=== PATIENT | female | born 1965 | race Caucasian/White ===

== ENCOUNTER 2016-09-21 08:59 | Inpatient (IN) | payer OTHER ==
[2016-09-21 10:26] VITALS: BMI 27.4
--- NOTE | 2016-09-21 14:15 | HP ---
CIWA Score - CIWA Score Nausea/Vomitin Muscle Tremors: 4-Moderate,w/Arms Extend Anxiety: 4-Mod. Anxious/Guarded Agitation: 3 Paroxysmal Sweats: 3 Orientation: 0-Oriented Tacttile Disturbances: 2-Mild Itch/Numbness/Burn Auditory Disturbances: 0-None Visual Disturbances: 3-Moderate Sensitivity Headache: 3-Moderate CIWA-Ar Total Score: 27 Admission ROS S - HPI Chief Complaint: "I need to save my life and get back with my daughter who has shut me off." Patient is here to Detox from Alcohol. Allergies/Adverse Reactions: Allergies Allergy/AdvReac Type Severity Reaction Status Date / Time latex [Latex] Allergy Severe Rash Verified 09/21/16 11:34 Influenza Virus Vaccines Allergy Verified 09/21/16 11:34 pneumococcal vaccine Allergy Verified 09/21/16 11:34 tuberculin, purified protein Allergy Verified 09/21/16 15:47 deriva latex Allergy Mild Uncoded 09/21/16 11:34 ppd Allergy Uncoded 09/21/16 11:34 History of Present Illness: Patient is a 51 YO female here to Detox from Alcohol. Pt. has had several previous Detox admissions at [facility] in the past. Exam Limitations: Intoxication, Altered Mental Status - Ebola screening Have you traveled outside of the country in the last 21 days: No Have you had contact with anyone from an Ebola affected area: No Have you been sick,other than usual withdrawal symptoms: No Do you have a fever: No - Review of Systems Constitutional: Chills, Diaphoresis, Fever, Malaise, Night Sweats, Changes in sleep EENT: reports: Blurred Vision, Nose Congestion, Sinus Pressure Respiratory: reports: SOB with Exertion, Productive cough Cardiac: reports: Palpitations, Syncope (Blackout - Last episode: approx. 3 days ago.) GI: reports: Diarrhea, Nausea, Vomiting, Indigestion, Abdominal cramping : reports: Burning (Was being treated for a UTI, stopped taking medication before completing (approx. 1 month ago).), Dysuria, Discharge (Yellow Color.) Musculoskeletal: reports: Back Pain, Joint Pain, Muscle Pain, Neck Pain, Joint Stiffness Integumentary: reports: No Symptoms Reported Neuro: reports: Headache, Numbness (Fingertips of Bilateral Hands and Toes of Bilateral Feet.), Seizure (Last Episode (ETOH-related): approx. 3 years ago.), Tingling (Fingertips of Bilateral Hands and Toes of Bilateral Feet.), Tremors Endocrine: reports: No Symptoms Reported Hematology: reports: Easy Bruising Psychiatric: reports: Judgement Intact, Orientated x3, Agitated, Anxious, Depressed Other Systems: Reviewed and Negative Patient History - Patient Medical History Hx Anemia: No Hx Asthma: Yes (No recent meds.) Hx Chronic Obstructive Pulmonary Disease (COPD): No Hx Cancer: No Hx Cardiac Disorders: No Hx Congestive Heart Failure: No Hx Hypertension: Yes (Takes meds.) Hx Hypercholesterolemia: Yes (Takes meds.) Hx Pacemaker: No HX Cerebrovascular Accident: No Hx Seizures: Yes (alcohol related once in 2013) Hx Dementia: No Hx Diabetes: No Hx Gastrointestinal Disorders: Yes (acid reflux/peptic ulcer (possible Gastritis , patient unsure?)) Hx Liver Disease: Yes (fatty liver) Hx Genitourinary Disorders: No Hx Sexually Transmitted Disorders: No Hx Renal Disease (ESRD): No Hx Thyroid Disease: No Hx Human Immunodeficiency Virus (HIV): No Hx Hepatitis C: No (Does not Recall being tested.) Hx Depression: Yes (On meds.) Hx Suicide Attempt: No (PATIENT DENEIS CURRENT SI / HI.) Hx Bipolar Disorder: Yes (On meds.) Hx Schizophrenia: No - Patient Surgical History Past Surgical History: Yes Hx Neurologic Surgery: No Hx Cataract Extraction: No Hx Cardiac Surgery: No Hx Lung Surgery: Yes (collapsed R lung S/P CHEST TUBE, approx. 10 years ago.) Hx Breast Surgery: No Hx Breast Biopsy: No Hx Abdominal Surgery: No Hx Appendectomy: No Hx Cholecystectomy: No Hx Genitourinary Surgery: No Hx Section: No Hx Orthopedic Surgery: No Hx Hysterectomy: No Other Surgical History: TONSILLECTOMY DURING CHILDHOOD; 1 (1979). Anesthesia Reaction: No - PPD History Previous Implant?: Yes (Patient has had Negative reaction to PPD solution in past. CXR: 10/2015.) Documented Results: Negative w/o proof Implanted On Prior [facility] Admission?: No PPD to be Administered?: No - Reproductive History Patient is a Female of Child Bearing Age (11 -55 yrs old): Yes Last Menstrual Period: 05/07/09 Patient : No - Smoking Cessation Smoking history: Current every day smoker Have you smoked in the past 12 months: Yes Aproximately how many cigarettes per day: 20 Cigars Per Day: 0 Hx Chewing Tobacco Use: No Initiated information on smoking cessation: Yes 'Breaking Loose' booklet given: 09/21/16 (GIVEN ON UNIT.) - Substance & Tx. History Hx Alcohol Use: Yes Hx Substance Use: Yes Substance Use Type: Alcohol Hx Substance Use Treatment: Yes (Previous Detox admissions at [facility].) - Substances Abused Alcohol-vodka Route: Oral Frequency: Daily Amount used: 2 pts. Age of first use: 15 Date of Last Use: 09/21/16 Family Disease History - Family Disease History Family Disease History: Diabetes: Grandparent (breast cancer), CA: Grandparent, Mother (; breast cancer; alcoholic), Other: Mother, Brother (dec; AIDS) , Sister (drug use) Admission Physical Exam [facility] - Vital Signs Vital Signs: Vital Signs - 24 hr 09/21/16 10:23 Temperature 97 F L Pulse Rate 79 Respiratory 20 Rate Blood Pressure 111/74 - Physical General Appearance: Yes: Nourished, Appropriately Dressed, Moderate Distress, Tremorous, Irritable, Anxious HEENTM: Yes: Hearing grossly Normal, Normocephalic, Normal Voice, JERE, Pharynx Normal Respiratory: Yes: Chest Non-Tender, Lungs Clear, No Respiratory Distress Neck: Yes: No masses,lesions,Nodules, Supple, Trachea in good position Breast: Yes: Breast Exam Deferred Cardiology: Yes: Regular Rhythm, Regular Rate, S1, S2 Abdominal: Yes: Normal Bowel Sounds, Soft, Protuberent Genitourinary: Yes: Burning, Dysuria Back: Yes: Decreased Range of Motion Musculoskeletal: Yes: Gait Steady, Back pain, Joint Stiffness Extremities: Yes: Tremors Neurological: Yes: Fully Oriented, Alert, Normal Response Integumentary: Yes: Normal Color, Warm, Diaphoresis Lymphatic: Yes: Within Normal Limits - Diagnostic (1) Alcohol dependence with uncomplicated withdrawal Current Visit: Yes Status: Acute (2) GERD (gastroesophageal reflux disease) Current Visit: Yes Status: Chronic Qualifiers: Esophagitis presence: without esophagitis Qualified Code(s): K21.9 - Gastro-esophageal reflux disease without esophagitis (3) HTN (hypertension) Current Visit: Yes Status: Chronic Qualifiers: Hypertension type: essential hypertension Qualified Code(s): I10 - Essential (primary) hypertension (4) Hypercholesteremia Current Visit: Yes Status: Chronic (5) Nicotine dependence Current Visit: Yes Status: Chronic Qualifiers: Nicotine product type: cigarettes Substance use status: uncomplicated Qualified Code(s): F17.210 - Nicotine dependence, cigarettes, uncomplicated (6) History of bipolar disorder Current Visit: Yes Status: Chronic (7) History of asthma Current Visit: Yes Status: Chronic Cleared for Admission [facility] - Detox or Rehab [facility] Level of Care: Medically Managed Detox Regimen/Protocol: Librium [facility] Breath Alcohol Content Breath Alcohol Content: 0.313 Urine Pregancy Test - Result Urine Test Results: Negative- NO Line Present Urine Drug Screen - Results Drug Screen Negative: Yes
[2016-09-21 14:46] LABS: HIV 1 & 2 AB NEGATIVE; HIV 1 AGp24 NEGATIVE
[2016-09-21] MEDS ORDERED: MAGNESIUM CITRATE 300 ML BOTTLE PO PRN (15:32)
[2016-09-21] MEDS ORDERED: P-EPHED 60MG/TRIPROLIDI 2.5MG TABLET PO PRN (15:32)
[2016-09-21] MEDS ORDERED: ACETAMINOPHEN 325 MG TABLET (FP) PO PRN (15:32)
[2016-09-21] MEDS ORDERED: guaiFENesin/D-METHORPHAN HB 10 ML UNIT-DOSE CUPS PO PRN (15:32)
[2016-09-21] MEDS ORDERED: diphenhydrAMINE HCL 50 MG CAPSULE PO PRN (15:32)
[2016-09-21] MEDS ORDERED: MAG HYDROX/AL HYDROX/SIMETH 30 ML UNIT-DOSE CUP PO PRN (15:32)
[2016-09-21] MEDS ORDERED: NICOTINE POLACRILEX 2 MG GUM BC PRN (15:32)
[2016-09-21] MEDS ORDERED: chlordiazePOXIDE HCL 25 MG CAPSULE PO PRN (15:32)
[2016-09-21] MEDS ORDERED: MAGNESIUM HYDROX 2400MG/30ML ORAL SUSPENSION 30 ML CUP PO PRN (15:32)
[2016-09-21] MEDS ORDERED: MENTHOL/PHENOL 1 EACH UD MM PRN (15:32)
[2016-09-21] MEDS ORDERED: ALBUTEROL SO4 6.7 GM HFA INHALER IH PRN (15:38)
[2016-09-21] MEDS ORDERED: chlordiazePOXIDE HCL 25 MG CAPSULE PO ONE (15:44)
[2016-09-21] MEDS ORDERED: ARTIFICIAL TEARS (POLYVINYL ALCOHOL 1.4%) OPTH DROPS OU PRN (15:53)
[2016-09-21] MEDS: chlordiazePOXIDE HCL 25 MG CAPSULE PO SCH ×2 (17:53→22:31)
[2016-09-21] MEDS: NICOTINE 21 MG/24 HOURS TOPICAL PATCH TD SCH (17:55)
--- NOTE | 2016-09-21 17:57 | CONSULT ---
[facility] Psychiatric Consult - Data Date of interview: 09/21/16 Admission source: [facility] Identifying data: Readmission to [facility] for this 50 y/o female admitted to [address] [place] [address] for detox treatment for alcohol dependence.Patient is ,a mother of one,domiciled,unemployed and supported on SSI benefts. Substance Abuse History: - Smoking Cessation. Smoking history: Current every day smoker. Have you smoked in the past 12 months: Yes. Aproximately how many cigarettes per day: 20. Cigars Per Day: 0. Hx Chewing Tobacco Use: No. Initiated information on smoking cessation: Yes. 'Breaking Loose' booklet given : 09/21/16 (GIVEN ON UNIT.). - Substance & Tx. History. Hx Alcohol Use: Yes. Hx Substance Use: Yes. Substance Use Type: Alcohol. Hx Substance Use Treatment : Yes (Previous Detox admissions at [facility] - Substances Abused. Alcohol- vodka. Route: Oral. Frequency: Daily. Amount used: 2 pts. Age of first use: 15. Date of Last Use: 09/21/16. Confirmed by patient. Medical History: Remarkable for hypercholesterolemia,HTN and substance-induced seizures in 2014. Psychiatric History: Patient appears intoxicated (alcohol).Disorganized and unreliable historian.She is already known to this freelance writer.History is extracted from previously established records : diagnosed with Bipolar Disorder.History of multiple psychiatric hospitalizations.Psychiatric OPD services are supervised ,at [facility],by psychiatrist Dr Cardona.Ms Lala states that she is no longer on wellbutrin,risperdal or seroquel.Chronically non-adherent to aftercare.Patient denies history of suicide attempts. Physical/Sexual Abuse/Trauma History: No reported history of abuse. Additional Comment: Drug Screen is negative. Mental Status Exam - Mental Status Exam Alert and Oriented to: Time, Place, Person Cognitive Function: Good Patient Appearance: Well Groomed Mood: Euphoric Affect: Labile Patient Behavior: Fatigued, Talkative Speech Pattern: Inappropriate, Excessive Voice Loudness: Normal Thought Process: Tangential, Disorganized Thought Disorder: Bizarre Hallucinations: Denies Suicidal Ideation: Denies Homicidal Ideation: Denies Insight/Judgement: Poor Sleep: Fair Appetite: Good Muscle strength/Tone: Normal Gait/Station: Normal Psychiatric Findings - Problem List ([place] 1, 2,3) (1) Alcohol dependence with uncomplicated withdrawal Current Visit: Yes Status: Acute (2) Nicotine dependence Current Visit: Yes Status: Acute Qualifiers: Nicotine product type: cigarettes Substance use status: uncomplicated Qualified Code(s): F17.210 - Nicotine dependence, cigarettes, uncomplicated (3) Alcohol intoxication Current Visit: Yes Status: Suspected (4) History of bipolar disorder Current Visit: Yes Status: Chronic (5) GERD (gastroesophageal reflux disease) Current Visit: Yes Status: Chronic Qualifiers: Esophagitis presence: without esophagitis Qualified Code(s): K21.9 - Gastro-esophageal reflux disease without esophagitis (6) HTN (hypertension) Current Visit: Yes Status: Chronic Qualifiers: Hypertension type: essential hypertension Qualified Code(s): I10 - Essential (primary) hypertension (7) History of asthma Current Visit: Yes Status: Chronic (8) History of positive PPD Current Visit: Yes Status: Chronic (9) Hypercholesteremia Current Visit: Yes Status: Chronic (10) Positive PPD Current Visit: No Status: Chronic - Initial Treatment Plan Initial Treatment Plan: Psychoeducation deferred at this time (patient is too disorganized).Detoxification is initiated.Observation without psychotropic medications (with the exception of detox agents).Discussed with nursing staff.
[2016-09-21] MEDS: THIAMINE HCL 100 MG TABLET (FP) PO SCH (22:30)
[2016-09-21] MEDS: RANITIDINE HCL 150 MG TABLET (FP) PO SCH (22:31)
[2016-09-21] MEDS: GABAPENTIN 100 MG CAPSULE (FP) PO SCH (22:31)
[2016-09-21] MEDS: ATORVASTATIN CA 10 MG TABLET (FP) PO SCH (22:32)
[2016-09-21] MEDS: TOLNAFTATE 1% CREAM 15 GM TUBE TP SCH (23:02)
[2016-09-21 23:21] LABS: URINE APPEARANCE CLEAR; URINE BILIRUBIN NEGATIVE (NEGATIVE); URINE BLOOD NEGATIVE (NEGATIVE); URINE COLOR LTYELLOW; URINE GLUCOSE (UA) NEGATIVE (NEGATIVE); URINE KETONE NEGATIVE (NEGATIVE); URINE LEUK ESTERASE NEGATIVE (NEGATIVE); URINE NITRITE NEGATIVE (NEGATIVE); URINE PROTEIN NEGATIVE (NEGATIVE); URINE UROBILINOGEN NEGATIVE E.U./dl (0.2-1.0)
[2016-09-22] MEDS: chlordiazePOXIDE HCL 25 MG CAPSULE PO SCH ×4 (05:29→22:43)
[2016-09-22] MEDS: GABAPENTIN 100 MG CAPSULE (FP) PO SCH ×3 (05:30→22:43)
[2016-09-22] MEDS ORDERED: TRIMETHOBENZAMIDE HCL 200MG/2ML INJ IM PRN (09:38)
[2016-09-22] MEDS ORDERED: LORATADINE 10 MG TABLET PO PRN (10:00)
[2016-09-22] MEDS ORDERED: METOPROLOL TARTRATE 25 MG TABLET (FP) PO SCH (10:00)
--- NOTE | 2016-09-22 10:08 | PN ---
S CIWA - CIWA Score Nausea/Vomitin Muscle Tremors: 3 Anxiety: 3 Agitation: 2 Paroxysmal Sweats: 1-Minimal Palms Moist Orientation: 0-Oriented Tacttile Disturbances: 1-Very Mild Itch/Numbness Auditory Disturbances: 1-Very Mild Visual Disturbances: 1-Very Mild Sensitivity Headache: 2-Mild CIWA-Ar Total Score: 17 BHS Progress Note (SOAP) Subjective: ALERT,IRRITABLE,ANXIOUS,INTERRUPTED SLEEP,TREMOR,VOMITING Objective: 09/22/16 10:07 Vital Signs Temperature 98.8 F 09/22/16 06:00 Pulse Rate 74 09/22/16 06:00 Respiratory Rate 18 09/22/16 06:00 Blood Pressure 151/84 09/22/16 06:00 O2 Sat by Pulse Oximetry (%) EKG NSR,PROLONG QT NO CHEST PAIN,NO SOB,NO DIZZINESS Laboratory Last Values Urine Color Ltyellow 09/21/16 23:00 Urine Appearance Clear 09/21/16 23:00 Urine pH 7.0 (5.0-8.0) 09/21/16 23:00 Ur Specific [place] <= 1.005 (1.005-1.025) 09/21/16 23:00 Urine Protein Negative (NEGATIVE) 09/21/16 23:00 Urine Glucose (UA) Negative (NEGATIVE) 09/21/16 23:00 Urine Ketones Negative (NEGATIVE) 09/21/16 23:00 Urine Blood Negative (NEGATIVE) 09/21/16 23:00 Urine Nitrite Negative (NEGATIVE) 09/21/16 23:00 Urine Bilirubin Negative (NEGATIVE) 09/21/16 23:00 Urine Urobilinogen Negative E.U./dl (0.2-1.0) 09/21/16 23:00 Ur Leukocyte Esterase Negative (NEGATIVE) 09/21/16 23:00 HIV 1&2 Antibody Screen Negative 09/21/16 12:30 HIV P24 Antigen Negative 09/21/16 12:30 LABS PENDING Assessment: 09/22/16 10:08 WITHDRAWAL SYMPTOM Plan: CONTINUE DETOX
[2016-09-22] MEDS: METOPROLOL SUCCINATE 25 MG TAB.SR.24H (FP) PO SCH (10:22)
[2016-09-22] MEDS: PRENATAL VITAMINS W/ FOLIC ACID TABLET (FP) PO SCH (10:22)
[2016-09-22] MEDS: RANITIDINE HCL 150 MG TABLET (FP) PO SCH ×2 (10:22→22:42)
[2016-09-22 10:23] LABS: MCH 31.9 pg (25.7-33.7); MCHC 33.3 g/dl (32.0-36.0); MEAN CELL VOLUME 95.8 fl (80-96); MEAN PLT VOLUME 9.4 fl (7.5-11.1); PLATELET COUNT 201 K/MM3 (134-434); RDW 14.2 % (11.6-15.6); WHITE BLOOD COUNT 4.4 K/mm3 (4.0-10.0)
[2016-09-22] MEDS: TOLNAFTATE 1% CREAM 15 GM TUBE TP SCH ×2 (10:23→22:46)
[2016-09-22] MEDS: NICOTINE 21 MG/24 HOURS TOPICAL PATCH TD SCH (10:23)
--- NOTE | 2016-09-22 10:41 | EKG ---
Test Reason : Blood Pressure : / mmHG Vent. Rate : 074 BPM Atrial Rate : 074 BPM P-R Int : 146 ms QRS Dur : 080 ms QT Int : 438 ms P-R-T Axes : 045 065 047 degrees QTc Int : 486 ms NORMAL SINUS RHYTHM PROLONGED QT ABNORMAL ECG NO PREVIOUS ECGS AVAILABLE Confirmed by MAI NAVARRO, COLT ([id number]) on 09/22/2016 10:41:11 AM Referred By: Confirmed By:COLT ONEILL MD
[2016-09-22 10:43] LABS: ALBUMIN 3.7 g/dl (3.4-5.0); ALK PHOS 115 U/L (45-117); ANION GAP 11 (8-16); BILIRUBIN,TOTAL 0.5 mg/dL (0.2-1.0); CO2 27 mmol/L (21-32); COCKROFT - GAULT 133.5095; CREATININE 0.6 mg/dL (0.55-1.02); GLUCOSE,RANDOM 104 mg/dL (74-106); SGOT/AST 189 U/L (15-37); SGPT/ALT 94 U/L (12-78)
[2016-09-22] MEDS: ATORVASTATIN CA 10 MG TABLET (FP) PO SCH (22:42)
[2016-09-22] MEDS: hydrOXYzine PAMOATE 50 MG CAPSULE (FP) PO PRN (22:43)
[2016-09-22] MEDS: IBUPROFEN 400 MG TABLET (FP) PO PRN (22:44)
[2016-09-22] MEDS: THIAMINE HCL 100 MG TABLET (FP) PO SCH (22:46)
[2016-09-23] MEDS: chlordiazePOXIDE HCL 25 MG CAPSULE PO SCH ×2 (06:04→10:47)
[2016-09-23] MEDS: GABAPENTIN 100 MG CAPSULE (FP) PO SCH ×3 (06:04→22:16)
[2016-09-23] MEDS: METOPROLOL SUCCINATE 25 MG TAB.SR.24H (FP) PO SCH (10:46)
[2016-09-23] MEDS: NICOTINE 21 MG/24 HOURS TOPICAL PATCH TD SCH (10:46)
[2016-09-23] MEDS: RANITIDINE HCL 150 MG TABLET (FP) PO SCH ×2 (10:46→22:16)
[2016-09-23] MEDS: PRENATAL VITAMINS W/ FOLIC ACID TABLET (FP) PO SCH (10:46)
[2016-09-23] MEDS: TOLNAFTATE 1% CREAM 15 GM TUBE TP SCH ×2 (10:49→23:14)
--- NOTE | 2016-09-23 10:55 | PN ---
S CIWA - CIWA Score Nausea/Vomitin Muscle Tremors: 3 Anxiety: 2 Agitation: 2 Paroxysmal Sweats: 1-Minimal Palms Moist Orientation: 0-Oriented Tacttile Disturbances: 1-Very Mild Itch/Numbness Auditory Disturbances: 1-Very Mild Visual Disturbances: 1-Very Mild Sensitivity Headache: 2-Mild CIWA-Ar Total Score: 16 S Progress Note (SOAP) Subjective: ALERT,IRRITABLE,ANXIOUS,INTERRUPTED SLEEP,TREMOR,TREMOR,DRY EYE Objective: 09/23/16 10:50 Vital Signs Temperature 97.9 F 09/23/16 10:00 Pulse Rate 79 09/23/16 10:00 Respiratory Rate 20 09/23/16 10:00 Blood Pressure 126/86 09/23/16 10:00 O2 Sat by Pulse Oximetry (%) Laboratory Last Values WBC 4.4 K/mm3 (4.0-10.0) D 09/22/16 06:00 RBC 3.95 M/mm3 (3.60-5.2) 09/22/16 06:00 Hgb 12.6 GM/dL (10.7-15.3) 09/22/16 06:00 Hct 37.9 % (32.4-45.2) 09/22/16 06:00 MCV 95.8 fl (80-96) 09/22/16 06:00 MCHC 33.3 g/dl (32.0-36.0) 09/22/16 06:00 RDW 14.2 % (11.6-15.6) 09/22/16 06:00 Plt Count 201 K/MM3 (134-434) 09/22/16 06:00 MPV 9.4 fl (7.5-11.1) 09/22/16 06:00 Sodium 144 mmol/L (136-145) 09/22/16 06:00 Potassium 3.9 mmol/L (3.5-5.1) 09/22/16 06:00 Chloride 106 mmol/L (98-107) 09/22/16 06:00 Carbon Dioxide 27 mmol/L (21-32) 09/22/16 06:00 Anion Gap 11 (8-16) 09/22/16 06:00 BUN 10 mg/dL (7-18) D 09/22/16 06:00 Creatinine 0.6 mg/dL (0.55-1.02) 09/22/16 06:00 Creat Clearance w eGFR > 60 (>60) 09/22/16 06:00 Random Glucose 104 mg/dL (74-106) 09/22/16 06:00 Calcium 8.0 mg/dL (8.5-10.1) L 09/22/16 06:00 Total Bilirubin 0.5 mg/dL (0.2-1.0) D 09/22/16 06:00 AST 189 U/L (15-37) H D 09/22/16 06:00 ALT 94 U/L (12-78) H D 09/22/16 06:00 Alkaline Phosphatase 115 U/L (45-117) 09/22/16 06:00 Total Protein 7.0 g/dl (6.4-8.2) 09/22/16 06:00 Albumin 3.7 g/dl (3.4-5.0) 09/22/16 06:00 Urine Color Ltyellow 09/21/16 23:00 Urine Appearance Clear 09/21/16 23:00 Urine pH 7.0 (5.0-8.0) 09/21/16 23:00 Ur Specific [place] <= 1.005 (1.005-1.025) 09/21/16 23:00 Urine Protein Negative (NEGATIVE) 09/21/16 23:00 Urine Glucose (UA) Negative (NEGATIVE) 09/21/16 23:00 Urine Ketones Negative (NEGATIVE) 09/21/16 23:00 Urine Blood Negative (NEGATIVE) 09/21/16 23:00 Urine Nitrite Negative (NEGATIVE) 09/21/16 23:00 Urine Bilirubin Negative (NEGATIVE) 09/21/16 23:00 Urine Urobilinogen Negative E.U./dl (0.2-1.0) 09/21/16 23:00 Ur Leukocyte Esterase Negative (NEGATIVE) 09/21/16 23:00 RPR Titer Nonreactive (NONREACTIVE) 09/22/16 06:00 Hepatitis C Antibody <0.1 s/co ratio (0.0-0.9) 09/21/16 06:00 HIV 1&2 Antibody Screen Negative 09/21/16 12:30 HIV P24 Antigen Negative 09/21/16 12:30 Assessment: 09/23/16 10:52 WITHDRAWAL SYMPTOM Plan: CONTINUE DETOX,ALT,AST ,INR IN AM,D/C TYLENOL
--- NOTE | 2016-09-23 14:07 | PN ---
[id number] F 62-85 18-20 115-143/62-93 Date of Session: 09/23/16 Chief Complaint:: " I want wellbutrin and nothing else ". HPI: Evaluated on 09/21/16 by this short story writer.Patient was intoxicated with alcohol on admission.Follow up examination is sought in response to patient's request to see the psychiatrist " to get an order for wellbutrin. " ROS: Observed lying in bed.Much calmer.Alert and fully oriented.No somatic complaints. Current Medications: Active Medications Generic Name Dose Route Start Last Admin Trade Name Freq PRN Reason Stop Dose Admin Al Hydroxide/Mg Hydroxide 30 ml 09/21/16 15:32 Mylanta Oral Suspension - PO Q6H PRN DYSPEPSIA Albuterol Sulfate 2 puff 09/21/16 15:38 Ventolin Hfa Inhaler - IH Q4H PRN SHORT OF BREATH/WHEEZING Artificial Tears 1 drop 09/23/16 14:00 Artificial Tears OU TID SHU Atorvastatin Calcium 10 mg 09/21/16 22:00 09/22/16 22:42 Lipitor - PO 10 mg HS SHU Administration Chlordiazepoxide HCl 10 mg 09/24/16 17:00 Librium - PO 09/25/16 11:01 [id number] SHU Chlordiazepoxide HCl 25 mg 09/21/16 15:32 09/22/16 08:47 Librium - PO 09/24/16 15:31 25 mg Q4H PRN Administration WITHDRAWAL(CONT SUBST) Chlordiazepoxide HCl 15 mg 09/23/16 17:00 Librium - PO 09/24/16 11:01 [id number] SHU Diphenhydramine HCl 50 mg 09/21/16 15:32 09/21/16 22:32 Benadryl - PO 50 mg HSMR1 PRN Administration INSOMNIA Eucalyptus/Menthol/Phenol/Sorbitol 1 each 09/21/16 15:32 Cepastat Lozenge - MM Q4H PRN SORE THROAT Gabapentin 100 mg 09/21/16 22:00 09/23/16 06:04 Neurontin - PO 100 mg TID SHU Administration Guaifenesin 10 ml 09/21/16 15:32 Robitussin Dm - PO Q6H PRN COUGH Hydroxyzine Pamoate 50 mg 09/21/16 15:32 09/22/16 22:43 Vistaril - PO 50 mg Q4H PRN Administration AGITATION Ibuprofen 400 mg 09/21/16 15:32 09/22/16 22:44 Motrin - PO 400 mg Q6H PRN Administration SEVERE PAIN Loperamide HCl 4 mg 09/21/16 15:32 Imodium - PO Q6H PRN DIARRHEA Loratadine 10 mg 09/22/16 10:00 Claritin - PO HS PRN NASAL CONGESTION Magnesium Citrate 300 ml 09/21/16 15:32 Citroma - PO Q48H PRN CONSTIPATION Magnesium Hydroxide 30 ml 09/21/16 15:32 Milk Of Magnesia - PO DAILY PRN CONSTIPATION Metoprolol Succinate 25 mg 09/22/16 10:00 09/23/16 10:46 Toprol Xl - PO 25 mg DAILY SHU Administration Nicotine 21 mg 09/21/16 15:45 09/23/16 10:46 Nicoderm Patch - TD 21 mg DAILY SHU Administration Nicotine Polacrilex 2 mg 09/21/16 15:32 Nicorette Gum - BC Q2H PRN NICOTINE REPLACEMENT RX Multivit/Folic Acid/Iron 1 tab 09/22/16 10:00 09/23/16 10:46 Vitamins ([facility]) - PO 1 tab DAILY SHU Administration Pseudoephedrine/Triprolidine 1 combo 09/21/16 15:32 Actifed - PO TID PRN NASAL CONGESTION Ranitidine HCl 150 mg 09/21/16 22:00 09/23/16 10:46 Zantac - PO 150 mg BID SHU Administration Thiamine HCl 100 mg 09/21/16 22:00 09/22/16 22:46 Vitamin B1 - PO 100 mg HS SHU Administration Tolnaftate 1 applic 09/21/16 22:00 09/23/16 10:49 Tinactin 1% Cream - TP Not Given BID SHU Trimethobenzamide HCl 200 mg 09/22/16 09:38 09/22/16 11:00 Tigan Injection - IM 200 mg Q8H PRN Administration NAUSEA AND/OR VOMITING Medication(s) Change(s): Observe without medications until further orders. Current Side Effect: No Lab tests ordered: No Lab tests reviewed: Yes Provider note:: Met with patient.She continues to decline to take any medication other than Wellbutrin (off for months).Ms Lala had clearly indicated ,on admission,that she has been taken off wellbutrin months earlier (reason not offered).Refuses to consider seroquel,risperdal,latuda or mood stabilizers.Not receptive to negotiations.Patient is unreliable and not invested in treatment.Wellbutrin will not be resumed.Patient is advised to return to her OPD psychiatrist for follow up. Total face to face time:: 30 Mental Status Exam - Mental Status Exam Alert and Oriented to: Time, Place, Person Cognitive Function: Good Patient Appearance: Well Groomed Mood: Withdrawn Affect: Normal Range Patient Behavior: Sedated (light sedation), Fatigued Speech Pattern: Clear Voice Loudness: Normal Thought Process: Goal Oriented Thought Disorder: Not Present Hallucinations: Denies Suicidal Ideation: Denies Homicidal Ideation: Denies Insight/Judgement: Poor Sleep: Fair Appetite: Good Muscle strength/Tone: Normal Gait/Station: Normal (when ambulatory) Psychiatric Treatment Plan - Problem List (1) Alcohol dependence with uncomplicated withdrawal Comment: . (2) Nicotine dependence Qualifiers: Nicotine product type: cigarettes Substance use status: uncomplicated Qualified Code(s): F17.210 - Nicotine dependence, cigarettes, uncomplicated Comment: . (3) Alcohol intoxication Comment: . (4) History of bipolar disorder Comment: . (5) GERD (gastroesophageal reflux disease) Qualifiers: Esophagitis presence: without esophagitis Qualified Code(s): K21.9 - Gastro-esophageal reflux disease without esophagitis Comment: . (6) HTN (hypertension) Qualifiers: Hypertension type: essential hypertension Qualified Code(s): I10 - Essential (primary) hypertension Comment: . (7) History of asthma Comment: . (8) History of positive PPD Comment: . (9) Hypercholesteremia Comment: . (10) Positive PPD Comment: .
[2016-09-23] MEDS: ARTIFICIAL TEARS (POLYVINYL ALCOHOL 1.4%) OPTH DROPS OU SCH ×2 (14:45→23:14)
[2016-09-23] MEDS: chlordiazePOXIDE 5 MG CAPSULE PO SCH ×2 (17:22→22:15)
[2016-09-23] MEDS: LOPERAMIDE HCL 2 MG CAPSULE PO PRN (17:22)
[2016-09-23] MEDS: IBUPROFEN 400 MG TABLET (FP) PO PRN (17:56)
[2016-09-23] MEDS: THIAMINE HCL 100 MG TABLET (FP) PO SCH (22:15)
[2016-09-23] MEDS: ATORVASTATIN CA 10 MG TABLET (FP) PO SCH (22:16)
[2016-09-23] MEDS: hydrOXYzine PAMOATE 50 MG CAPSULE (FP) PO PRN (22:18)
[2016-09-24] MEDS: chlordiazePOXIDE 5 MG CAPSULE PO SCH ×2 (06:15→10:30)
[2016-09-24] MEDS: GABAPENTIN 100 MG CAPSULE (FP) PO SCH ×3 (06:15→22:16)
[2016-09-24] MEDS: ARTIFICIAL TEARS (POLYVINYL ALCOHOL 1.4%) OPTH DROPS OU SCH ×3 (06:16→22:19)
--- NOTE | 2016-09-24 10:13 | PN ---
S Progress Note (SOAP) Subjective: ALERT,IRRITABLE,ANXIOUS,INTERRUPTED SLEEP Objective: 09/24/16 10:12 Vital Signs Temperature 97.5 F L 09/24/16 09:28 Pulse Rate 98 H 09/24/16 09:28 Respiratory Rate 20 09/24/16 09:28 Blood Pressure 108/73 09/24/16 09:28 O2 Sat by Pulse Oximetry (%) Assessment: 09/24/16 10:12 WITHDRAWAL SYMPTOM Plan: CONTINUE DETOX,DISCHARGE IN AM
[2016-09-24] MEDS: METOPROLOL SUCCINATE 25 MG TAB.SR.24H (FP) PO SCH (10:29)
[2016-09-24] MEDS: RANITIDINE HCL 150 MG TABLET (FP) PO SCH ×2 (10:29→22:16)
[2016-09-24] MEDS: PRENATAL VITAMINS W/ FOLIC ACID TABLET (FP) PO SCH (10:29)
[2016-09-24] MEDS: NICOTINE 21 MG/24 HOURS TOPICAL PATCH TD SCH (10:30)
[2016-09-24] MEDS: TOLNAFTATE 1% CREAM 15 GM TUBE TP SCH ×2 (10:32→23:08)
[2016-09-24 10:34] LABS: SGOT/AST 79 U/L (15-37); SGPT/ALT 59 U/L (12-78)
[2016-09-24] MEDS: chlordiazePOXIDE HCL 10 MG CAPSULE PO SCH ×2 (17:12→22:16)
[2016-09-24] MEDS: THIAMINE HCL 100 MG TABLET (FP) PO SCH (22:16)
[2016-09-24] MEDS: ATORVASTATIN CA 10 MG TABLET (FP) PO SCH (22:16)
[2016-09-24] MEDS: LOPERAMIDE HCL 2 MG CAPSULE PO PRN (22:18)
[2016-09-24] MEDS: hydrOXYzine PAMOATE 50 MG CAPSULE (FP) PO PRN (22:19)
[2016-09-25] MEDS: hydrOXYzine PAMOATE 50 MG CAPSULE (FP) PO PRN (03:07)
[2016-09-25] MEDS: GABAPENTIN 100 MG CAPSULE (FP) PO SCH (05:54)
[2016-09-25] MEDS: chlordiazePOXIDE HCL 10 MG CAPSULE PO SCH (05:54)
[2016-09-25] MEDS: ARTIFICIAL TEARS (POLYVINYL ALCOHOL 1.4%) OPTH DROPS OU SCH (06:15)
--- NOTE | 2016-09-25 08:14 | PN ---
S Progress Note (SOAP) Subjective: ALERT,NO COMPLAINT Objective: 09/25/16 08:12 Vital Signs Temperature 97.9 F 09/25/16 06:00 Pulse Rate 59 L 09/25/16 06:00 Respiratory Rate 18 09/25/16 06:00 Blood Pressure 106/65 09/25/16 06:00 O2 Sat by Pulse Oximetry (%) Assessment: 09/25/16 08:13 DETOX COMPLETED,NO WITHDRAWAL SYMPTOM Plan: DISCHARGE TODAY,FOLLOW UP WITH AFTER CARE PROGRAM ARRANGEMENT
--- NOTE | 2016-09-25 08:20 | DS ---
[facility] Detox Discharge Summary Admission Date: 09/21/16 Discharge Date: 09/25/16 - History Present History: Alcohol Dependence Additional Comments: FOLLOW UP WITH AFTER [facility] PROGRAM ARRANGEMENT AND PMD FOR MEDICAL PROBLEM Pertinent Past History: GERD HYPERTENSION HYPERCHOLESTEROLEMIA BIPOLAR 2 DISORDER ASTHMA - Physical Exam Results Vital Signs: Vital Signs Temperature 97.9 F 09/25/16 06:00 Pulse Rate 59 L 09/25/16 06:00 Respiratory Rate 18 09/25/16 06:00 Blood Pressure 106/65 09/25/16 06:00 O2 Sat by Pulse Oximetry (%) Pertinent Admission Physical Exam Findings: WITHDRAWAL SYMPTOM - Treatment Hospital Course: Detox Protocol Followed, Detoxed Safely, Responded well, Discharged Condition Good Patient has Accepted a Rehab Referral to: [facility] - Medication Discharge Medications: Ambulatory Orders Metoprolol Tartrate [Lopressor -] 25 mg PO DAILY #30 tablet 06/16/15 Ranitidine [Zantac -] 150 mg PO BID #60 tablet 09/01/15 Simvastatin [Zocor -] 20 mg PO HS #30 tablet 09/01/15 Gabapentin 100 mg PO Q8H 10/30/15 Quetiapine Fumarate [Seroquel] 100 tab PO HS #30 tablet 11/01/15 Calcium Carbonate [Oyster Shell Calcium] 500 mg PO BID 09/21/16 Cetirizine HCl [Zyrtec -] 10 mg PO HS PRN 09/21/16 Vitamin B Complex 1 each PO DAILY 09/21/16 - Diagnosis (1) Alcohol dependence with uncomplicated withdrawal Current Visit: Yes Status: Acute (2) Nicotine dependence Current Visit: Yes Status: Acute Qualifiers: Nicotine product type: cigarettes Substance use status: uncomplicated Qualified Code(s): F17.210 - Nicotine dependence, cigarettes, uncomplicated (3) GERD (gastroesophageal reflux disease) Current Visit: Yes Status: Chronic Qualifiers: Esophagitis presence: without esophagitis Qualified Code(s): K21.9 - Gastro-esophageal reflux disease without esophagitis (4) HTN (hypertension) Current Visit: Yes Status: Chronic Qualifiers: Hypertension type: essential hypertension Qualified Code(s): I10 - Essential (primary) hypertension (5) History of asthma Current Visit: Yes Status: Chronic (6) History of bipolar disorder Current Visit: Yes Status: Chronic (7) History of positive PPD Current Visit: Yes Status: Chronic (8) Hypercholesteremia Current Visit: Yes Status: Chronic (9) Bipolar II disorder Current Visit: No Status: Acute - AMA Did Patient Leave Against Medical Advice: No
[2016-09-25 09:45] VITALS: BP 103/70; PULSE 73; TEMP 97.3
== END 2016-09-25 09:50 | disposition home or self-care (01) | DRG 775 ==
LOC: YASAS 08:59 → Y6N 13:22
PROVIDERS: ADMIT Internal Medicine; ATTEND Internal Medicine
PROC: HZ2ZZZZ Detoxification Services for Substance Abuse Treatment (ICD-10-PCS; principal; 2016-09-21)
DX: F10.230 Alcohol dependence with withdrawal, uncomplicated (principal); F17.210 Nicotine dependence, cigarettes, uncomplicated; F31.81 Bipolar II disorder; K21.9 Gastro-esophageal reflux disease without esophagitis; I10 Essential (primary) hypertension; E78.00 Pure hypercholesterolemia, unspecified; R76.11 Nonspecific reaction to tuberculin skin test without active tuberculosis; K27.9 Peptic ulcer, site unspecified, unspecified as acute or chronic, without hemorrhage or perforation; K76.0 Fatty (change of) liver, not elsewhere classified; Z87.09 Personal history of other diseases of the respiratory system; Z86.69 Personal history of other diseases of the nervous system and sense organs
CPT/HCPCS: 36415; 80053; 81003; 84450; 84460; 85027; 86593; 86803; 87389; 93005; 93010

== ENCOUNTER 2021-06-28 09:13 | Inpatient (IN) | payer OTHER ==
[2021-06-28] MEDS ORDERED: IBUPROFEN 400 MG TABLET (FP) PO PRN (09:45)
[2021-06-28] MEDS ORDERED: LOPERAMIDE HCL 2 MG CAPSULE PO PRN (09:45)
[2021-06-28] MEDS ORDERED: ACETAMINOPHEN 325 MG TABLET (FP) PO PRN ×2 (09:45)
[2021-06-28] MEDS ORDERED: MAG HYDROX/AL HYDROX/SIMETH 30 ML UNIT-DOSE CUP PO PRN (09:45)
[2021-06-28] MEDS ORDERED: BISMUTH SUBSALICYLATE 262 MG/15 ML BTL PO PRN (09:45)
[2021-06-28] MEDS ORDERED: MAGNESIUM HYDROX 2400MG/30ML ORAL SUSPENSION 30 ML CUP PO PRN (09:45)
[2021-06-28] MEDS ORDERED: MAGNESIUM CITRATE 300 ML BOTTLE PO PRN (09:45)
[2021-06-28] MEDS ORDERED: MENTHOL/PHENOL 1 EACH UD MM PRN (09:45)
[2021-06-28] MEDS ORDERED: ONDANSETRON *ODT* 4 MG TABLET SL PRN (09:45)
[2021-06-28] MEDS ORDERED: ALBUTEROL SO4 HFA INHALER IH PRN (09:48)
[2021-06-28] MEDS ORDERED: LORATADINE 10 MG TABLET PO PRN (09:48)
[2021-06-28] MEDS ORDERED: GABAPENTIN 100 MG CAPSULE PO SCH (10:00)
[2021-06-28] MEDS: METOPROLOL TARTRATE 25 MG TABLET (FP) PO SCH (10:30)
[2021-06-28] MEDS: CALCIUM (OYSTER SHELL) 500 MG TABLET (FP) PO SCH ×2 (10:30→22:37)
[2021-06-28] MEDS: FAMOTIDINE 20 MG TABLET PO SCH ×2 (10:30→22:37)
[2021-06-28 12:10] VITALS: BMI 25.8
[2021-06-28 14:25] LABS: ALBUMIN 3.7 g/dl (3.4-5.0); BLOOD UREA NITROGEN 6.7 mg/dL (7-18); CALCIUM 9.2 mg/dL (8.5-10.1)
[2021-06-28 14:26] LABS: HEMATOCRIT 41.2 % (32.4-45.2); HEMOGLOBIN 13.3 GM/dL (10.7-15.3); MCH 33.8 pg (25.7-33.7); MCHC 32.4 g/dl (32.0-36.0); MEAN CELL VOLUME 104.4 fl (80-96); MEAN PLT VOLUME 10.4 fl (7.5-11.1); PLATELET COUNT 143 10^3/uL (134-434); RBC 3.95 M/mm3 (3.60-5.2); RDW 13.9 % (11.6-15.6); WHITE BLOOD COUNT 5.6 K/mm3 (4.0-10.0)
[2021-06-28 14:28] LABS: CREATININE 0.7 mg/dL (0.55-1.3)
[2021-06-28 14:29] LABS: BILIRUBIN,TOTAL 0.7 mg/dL (0.2-1)
[2021-06-28 14:30] LABS: TOT PROT 7.3 g/dl (6.4-8.2)
[2021-06-28] MEDS: chlordiazePOXIDE HCL 25 MG CAPSULE PO PRN (14:59)
[2021-06-28] MEDS: hydrOXYzine PAMOATE 25 MG CAPSULE (FP) PO SCH ×4 (15:00→22:37)
[2021-06-28] MEDS: METHOCARBAMOL 500 MG TABLET PO PRN (15:00)
[2021-06-28] MEDS: NICOTINE 21 MG/24 HOURS TOPICAL PATCH TD SCH (15:07)
[2021-06-28] MEDS: PRENATAL VITAMINS W/ FOLIC ACID TABLET (FP) PO SCH (15:19)
[2021-06-28] MEDS: chlordiazePOXIDE HCL 25 MG CAPSULE PO SCH ×2 (18:06→22:37)
[2021-06-28] MEDS: NICOTINE 10 MG CARTRIDGE (INHALER) IH PRN (18:31)
[2021-06-28] MEDS: MELATONIN 5 MG TABLETS PO SCH (22:36)
[2021-06-28] MEDS: ATORVASTATIN CA 10 MG TABLET (FP) PO SCH (22:37)
[2021-06-28] MEDS: GABAPENTIN 100 MG CAPSULE PO SCH (22:37)
[2021-06-28] MEDS: THIAMINE HCL 100 MG TABLET (FP) PO SCH (22:37)
[2021-06-29] MEDS: hydrOXYzine PAMOATE 25 MG CAPSULE (FP) PO SCH ×5 (05:51→22:29)
[2021-06-29] MEDS: GABAPENTIN 100 MG CAPSULE PO SCH ×3 (05:52→22:29)
[2021-06-29] MEDS: chlordiazePOXIDE HCL 25 MG CAPSULE PO SCH ×4 (05:52→22:29)
[2021-06-29] MEDS ORDERED: TRIMETHOBENZAMIDE HCL 200MG/2ML INJ IM PRN (10:14)
[2021-06-29] MEDS: FAMOTIDINE 20 MG TABLET PO SCH ×2 (10:15→22:29)
[2021-06-29] MEDS: PRENATAL VITAMINS W/ FOLIC ACID TABLET (FP) PO SCH (10:16)
[2021-06-29] MEDS: NICOTINE 21 MG/24 HOURS TOPICAL PATCH TD SCH (10:16)
[2021-06-29] MEDS: CALCIUM (OYSTER SHELL) 500 MG TABLET (FP) PO SCH ×2 (10:16→22:29)
[2021-06-29] MEDS: FLUTICASONE PROP 0.05% 16 GM NASAL SPRAY NS SCH ×2 (10:54→22:28)
[2021-06-29] MEDS: METOPROLOL TARTRATE 25 MG TABLET (FP) PO SCH (12:29)
[2021-06-29] MEDS: NICOTINE 10 MG CARTRIDGE (INHALER) IH PRN (15:44)
[2021-06-29] MEDS: ATORVASTATIN CA 10 MG TABLET (FP) PO SCH (22:29)
[2021-06-29] MEDS: THIAMINE HCL 100 MG TABLET (FP) PO SCH (22:29)
[2021-06-29] MEDS: MELATONIN 5 MG TABLETS PO SCH (22:29)
[2021-06-30] MEDS: GABAPENTIN 100 MG CAPSULE PO SCH ×3 (06:02→22:14)
[2021-06-30] MEDS: hydrOXYzine PAMOATE 25 MG CAPSULE (FP) PO SCH ×5 (06:02→23:08)
[2021-06-30] MEDS: chlordiazePOXIDE HCL 25 MG CAPSULE PO SCH ×4 (06:03→22:13)
[2021-06-30 10:08] LABS: SARS-CoV-2 NAA Not Detected (Not Detected)
[2021-06-30] MEDS ORDERED: TRIMETHOBENZAMIDE HCL 200MG/2ML INJ IM ONE (10:11)
[2021-06-30] MEDS ORDERED: DICYCLOMINE HCL 10 MG CAPSULE PO ONE (10:11)
[2021-06-30] MEDS: CALCIUM (OYSTER SHELL) 500 MG TABLET (FP) PO SCH ×2 (10:31→22:14)
[2021-06-30] MEDS: FLUTICASONE PROP 0.05% 16 GM NASAL SPRAY NS SCH ×2 (10:31→23:07)
[2021-06-30] MEDS: METOPROLOL TARTRATE 25 MG TABLET (FP) PO SCH (10:31)
[2021-06-30] MEDS: FAMOTIDINE 20 MG TABLET PO SCH ×2 (10:31→22:14)
[2021-06-30] MEDS: PRENATAL VITAMINS W/ FOLIC ACID TABLET (FP) PO SCH (10:31)
[2021-06-30] MEDS: NICOTINE 21 MG/24 HOURS TOPICAL PATCH TD SCH (12:27)
[2021-06-30] MEDS: chlordiazePOXIDE HCL 25 MG CAPSULE PO PRN (14:09)
[2021-06-30] MEDS: ARTIFICIAL TEARS (POLYVINYL ALCOHOL) OPTH DROPS OU PRN (17:43)
[2021-06-30] MEDS: MELATONIN 5 MG TABLETS PO SCH (22:14)
[2021-06-30] MEDS: ATORVASTATIN CA 10 MG TABLET (FP) PO SCH (22:14)
[2021-06-30] MEDS: METHOCARBAMOL 500 MG TABLET PO PRN (22:14)
[2021-06-30] MEDS: THIAMINE HCL 100 MG TABLET (FP) PO SCH (22:14)
[2021-07-01] MEDS ORDERED: chlordiazePOXIDE HCL 10 MG CAPSULE PO PRN
[2021-07-01] MEDS: chlordiazePOXIDE HCL 10 MG CAPSULE PO SCH ×4 (06:02→22:42)
[2021-07-01] MEDS: hydrOXYzine PAMOATE 25 MG CAPSULE (FP) PO SCH ×5 (06:02→22:42)
[2021-07-01] MEDS: GABAPENTIN 100 MG CAPSULE PO SCH ×3 (06:02→22:42)
[2021-07-01] MEDS: METHOCARBAMOL 500 MG TABLET PO PRN ×2 (06:03→17:54)
[2021-07-01] MEDS: FLUTICASONE PROP 0.05% 16 GM NASAL SPRAY NS SCH ×2 (10:39→22:41)
[2021-07-01] MEDS: FLUoxetine HCL 20 MG CAPSULE PO SCH (10:40)
[2021-07-01] MEDS: FAMOTIDINE 20 MG TABLET PO SCH ×2 (10:40→22:42)
[2021-07-01] MEDS: PRENATAL VITAMINS W/ FOLIC ACID TABLET (FP) PO SCH (10:40)
[2021-07-01] MEDS: ARIPiprazole 10 MG TABLET PO SCH (10:40)
[2021-07-01] MEDS: CALCIUM (OYSTER SHELL) 500 MG TABLET (FP) PO SCH ×2 (10:40→22:41)
[2021-07-01] MEDS: METOPROLOL TARTRATE 25 MG TABLET (FP) PO SCH (10:40)
[2021-07-01] MEDS: NICOTINE 21 MG/24 HOURS TOPICAL PATCH TD SCH (11:50)
[2021-07-01] MEDS: NICOTINE 10 MG CARTRIDGE (INHALER) IH PRN (11:51)
[2021-07-01] MEDS: ATORVASTATIN CA 10 MG TABLET (FP) PO SCH (22:41)
[2021-07-01] MEDS: MELATONIN 5 MG TABLETS PO SCH (22:41)
[2021-07-01] MEDS: THIAMINE HCL 100 MG TABLET (FP) PO SCH (22:42)
[2021-07-02] MEDS: chlordiazePOXIDE HCL 10 MG CAPSULE PO SCH ×2 (05:47→17:16)
[2021-07-02] MEDS: hydrOXYzine PAMOATE 25 MG CAPSULE (FP) PO SCH ×5 (05:48→22:33)
[2021-07-02] MEDS: GABAPENTIN 100 MG CAPSULE PO SCH ×3 (05:49→22:33)
[2021-07-02] MEDS: METOPROLOL TARTRATE 25 MG TABLET (FP) PO SCH (10:16)
[2021-07-02] MEDS: FLUoxetine HCL 20 MG CAPSULE PO SCH (10:16)
[2021-07-02] MEDS: CALCIUM (OYSTER SHELL) 500 MG TABLET (FP) PO SCH ×2 (10:16→22:33)
[2021-07-02] MEDS: PRENATAL VITAMINS W/ FOLIC ACID TABLET (FP) PO SCH (10:16)
[2021-07-02] MEDS: NICOTINE 21 MG/24 HOURS TOPICAL PATCH TD SCH (10:16)
[2021-07-02] MEDS: FLUTICASONE PROP 0.05% 16 GM NASAL SPRAY NS SCH ×2 (10:17→23:09)
[2021-07-02] MEDS: FAMOTIDINE 20 MG TABLET PO SCH ×2 (10:17→22:33)
[2021-07-02] MEDS: ARIPiprazole 10 MG TABLET PO SCH (10:19)
[2021-07-02] MEDS: ARTIFICIAL TEARS (POLYVINYL ALCOHOL) OPTH DROPS OU PRN (10:51)
[2021-07-02] MEDS: ATORVASTATIN CA 10 MG TABLET (FP) PO SCH (22:33)
[2021-07-02] MEDS: MELATONIN 5 MG TABLETS PO SCH (22:33)
[2021-07-02] MEDS: THIAMINE HCL 100 MG TABLET (FP) PO SCH (22:33)
[2021-07-03] MEDS ORDERED: chlordiazePOXIDE HCL 10 MG CAPSULE PO ONE (05:00)
[2021-07-03] MEDS: GABAPENTIN 100 MG CAPSULE PO SCH (05:59)
[2021-07-03] MEDS: hydrOXYzine PAMOATE 25 MG CAPSULE (FP) PO SCH ×2 (05:59→09:35)
[2021-07-03] MEDS: METHOCARBAMOL 500 MG TABLET PO PRN (09:35)
[2021-07-03] MEDS: ARIPiprazole 10 MG TABLET PO SCH (09:35)
[2021-07-03] MEDS: FAMOTIDINE 20 MG TABLET PO SCH (09:35)
[2021-07-03] MEDS: FLUoxetine HCL 20 MG CAPSULE PO SCH (09:35)
[2021-07-03] MEDS: METOPROLOL TARTRATE 25 MG TABLET (FP) PO SCH (09:36)
[2021-07-03] MEDS: CALCIUM (OYSTER SHELL) 500 MG TABLET (FP) PO SCH (09:36)
[2021-07-03] MEDS: FLUTICASONE PROP 0.05% 16 GM NASAL SPRAY NS SCH (09:36)
[2021-07-03] MEDS: PRENATAL VITAMINS W/ FOLIC ACID TABLET (FP) PO SCH (09:37)
[2021-07-03] MEDS: NICOTINE 21 MG/24 HOURS TOPICAL PATCH TD SCH (09:37)
[2021-07-03 11:19] VITALS: BP 100/72; PULSE 66; TEMP 97.2
== END 2021-07-03 10:03 | disposition home or self-care (01) | DRG 775 ==
LOC: YASAS 09:13 → Y3N 12:20
PROVIDERS: ADMIT Allergy & Immunology; ATTEND Allergy & Immunology
PROC: HZ2ZZZZ Detoxification Services for Substance Abuse Treatment (ICD-10-PCS; principal; 2021-06-28)
DX: F10.230 Alcohol dependence with withdrawal, uncomplicated (principal); F17.210 Nicotine dependence, cigarettes, uncomplicated; F31.81 Bipolar II disorder; I10 Essential (primary) hypertension; E78.5 Hyperlipidemia, unspecified; K21.9 Gastro-esophageal reflux disease without esophagitis; R73.9 Hyperglycemia, unspecified; R94.5 Abnormal results of liver function studies; Z86.11 Personal history of tuberculosis; Z88.7 Allergy status to serum and vaccine; Z91.040 Latex allergy status; Z56.0 Unemployment, unspecified; Z59.00 Homelessness unspecified
CPT/HCPCS: 36415; 71046-TC-FY; 80053; 85027; 86780; 93005; 93010; C9803; Q0162; U0003; U0005

== ENCOUNTER 2022-03-21 10:32 | Inpatient (IN) | payer OTHER ==
[2022-03-21 11:28] VITALS: BMI 24.5
[2022-03-21] MEDS ORDERED: BISMUTH SUBSALICYLATE 262 MG/15 ML BTL PO PRN (12:44)
[2022-03-21] MEDS ORDERED: NICOTINE 10 MG CARTRIDGE (INHALER) IH PRN (12:44)
[2022-03-21] MEDS ORDERED: IBUPROFEN 600 MG TABLET (FP) PO PRN (12:44)
[2022-03-21] MEDS ORDERED: LOPERAMIDE HCL 2 MG CAPSULE PO PRN (12:44)
[2022-03-21] MEDS ORDERED: MAG HYDROX/AL HYDROX/SIMETH 30 ML UNIT-DOSE CUP PO PRN (12:44)
[2022-03-21] MEDS ORDERED: hydrOXYzine PAMOATE 25 MG CAPSULE (FP) PO PRN (12:44)
[2022-03-21] MEDS ORDERED: MAGNESIUM HYDROX 2400MG/30ML ORAL SUSPENSION 30 ML CUP PO PRN (12:44)
[2022-03-21] MEDS ORDERED: POLYETHYLENE GLYCOL (HEALTHYLAX) 3350 17 GM PACKET PO PRN (12:44)
[2022-03-21] MEDS ORDERED: BENZOCAINE/MENTHOL (CHLORASEPTIC ) LOZENGE MM PRN (12:44)
[2022-03-21] MEDS ORDERED: NALOXONE HCL (KLOXXADO) 8 MG SPRAY NS PRN (12:44)
[2022-03-21] MEDS ORDERED: DICYCLOMINE HCL 10 MG CAPSULE PO PRN (12:44)
[2022-03-21] MEDS ORDERED: chlordiazePOXIDE HCL 25 MG CAPSULE PO PRN (12:44)
[2022-03-21] MEDS ORDERED: ACETAMINOPHEN 325 MG TABLET (FP) PO PRN ×2 (12:44)
[2022-03-21] MEDS ORDERED: ONDANSETRON *ODT* 4 MG TABLET SL PRN (12:44)
[2022-03-21] MEDS ORDERED: LORazepam 1 MG TABLET PO PRN (12:56)
[2022-03-21] MEDS ORDERED: LORazepam 2 MG TABLET PO ONE (12:56)
[2022-03-21] MEDS: PRENATAL VITAMINS W/ FOLIC ACID TABLET (FP) PO SCH (15:24)
[2022-03-21] MEDS: NICOTINE 14 MG/24 HOURS TOPICAL PATCH TD SCH (15:24)
[2022-03-21] MEDS ORDERED: chlordiazePOXIDE HCL 25 MG CAPSULE PO SCH (17:00)
[2022-03-21] MEDS: LORazepam 2 MG TABLET PO SCH ×2 (17:50→22:36)
[2022-03-21 18:31] LABS: CALCIUM 8.6 mg/dL (8.5-10.1)
[2022-03-21 18:32] LABS: ALBUMIN 3.4 g/dl (3.4-5.0); BLOOD UREA NITROGEN 8.2 mg/dL (7-18)
[2022-03-21 18:35] LABS: CREATININE 0.8 mg/dL (0.55-1.3)
[2022-03-21 18:37] LABS: TOT PROT 6.6 g/dl (6.4-8.2)
[2022-03-21 18:41] LABS: HEMATOCRIT 37.3 % (32.4-45.2); HEMOGLOBIN 12.3 GM/dL (10.7-15.3); MCH 33.5 pg (25.7-33.7); MCHC 32.9 g/dl (32.0-36.0); MEAN PLT VOLUME 11.1 fl (7.5-11.1); PLATELET COUNT 130 10^3/uL (134-434); RBC 3.66 M/mm3 (3.60-5.2); RDW 14.3 % (11.6-15.6); WHITE BLOOD COUNT 4.5 K/mm3 (4.0-10.0)
[2022-03-21] MEDS: NEOMYCIN/POLYMYXIN/BACITRACIN (TRIPLE ANTIBIOTIC) 28 GM OINTMENT TP SCH (22:35)
[2022-03-21] MEDS: MELATONIN 5 MG TABLETS PO SCH (22:35)
[2022-03-21] MEDS: THIAMINE HCL 100 MG TABLET (FP) PO SCH (22:36)
[2022-03-22] MEDS: LORazepam 2 MG TABLET PO SCH ×4 (05:33→22:05)
[2022-03-22] MEDS: NEOMYCIN/POLYMYXIN/BACITRACIN (TRIPLE ANTIBIOTIC) 28 GM OINTMENT TP SCH ×2 (10:06→22:05)
[2022-03-22] MEDS: PRENATAL VITAMINS W/ FOLIC ACID TABLET (FP) PO SCH (10:06)
[2022-03-22] MEDS: NICOTINE 14 MG/24 HOURS TOPICAL PATCH TD SCH ×2 (10:06→10:27)
[2022-03-22] MEDS ORDERED: ALBUTEROL SO4 HFA INHALER IH PRN (12:11)
[2022-03-22] MEDS ORDERED: FLUTICASONE PROP 0.05% 16 GM NASAL SPRAY NS SCH (12:15)
[2022-03-22] MEDS: LIDOCAINE 5% TOPICAL PATCH TP SCH (14:54)
[2022-03-22] MEDS: TETRAHYDROZOLINE HCL EYE DROPS OU PRN (14:54)
[2022-03-22] MEDS: LACTULOSE 20 GM/30 ML UDC (FOR ORAL USE ONLY) PO SCH ×2 (14:57→22:03)
[2022-03-22] MEDS: metFORMIN HCL 500 MG TABLET (FP) PO SCH (17:38)
[2022-03-22] MEDS: LIDOCAINE PATCH REMOVAL MC SCH (22:04)
[2022-03-22] MEDS: ATORVASTATIN CA 10 MG TABLET (FP) PO SCH (22:04)
[2022-03-22] MEDS: MELATONIN 5 MG TABLETS PO SCH (22:04)
[2022-03-22] MEDS: THIAMINE HCL 100 MG TABLET (FP) PO SCH (22:04)
[2022-03-22] MEDS: METHOCARBAMOL 500 MG TABLET PO PRN (22:55)
[2022-03-23] MEDS ORDERED: chlordiazePOXIDE HCL 25 MG CAPSULE PO SCH (05:00)
[2022-03-23] MEDS: LORazepam 1 MG TABLET PO SCH ×4 (05:15→22:14)
[2022-03-23] MEDS: LACTULOSE 20 GM/30 ML UDC (FOR ORAL USE ONLY) PO SCH ×3 (05:16→22:12)
[2022-03-23] MEDS: metFORMIN HCL 500 MG TABLET (FP) PO SCH ×2 (08:25→17:46)
[2022-03-23] MEDS: LIDOCAINE 5% TOPICAL PATCH TP SCH (10:13)
[2022-03-23] MEDS: FLUTICASONE PROP 0.05% 16 GM NASAL SPRAY NS SCH (10:13)
[2022-03-23] MEDS: PRENATAL VITAMINS W/ FOLIC ACID TABLET (FP) PO SCH (10:14)
[2022-03-23] MEDS: NICOTINE 14 MG/24 HOURS TOPICAL PATCH TD SCH (10:14)
[2022-03-23] MEDS: NEOMYCIN/POLYMYXIN/BACITRACIN (TRIPLE ANTIBIOTIC) 28 GM OINTMENT TP SCH ×2 (10:14→22:15)
[2022-03-23] MEDS: FLUoxetine HCL 20 MG CAPSULE PO SCH (10:15)
[2022-03-23] MEDS: METOPROLOL TARTRATE 25 MG TABLET (FP) PO SCH (10:15)
[2022-03-23] MEDS: PANTOPRAZOLE 40 MG TABLET PO SCH (10:15)
[2022-03-23] MEDS: ARIPiprazole 5 MG TABLET PO SCH (11:23)
[2022-03-23] MEDS: LIDOCAINE PATCH REMOVAL MC SCH (22:12)
[2022-03-23] MEDS: ATORVASTATIN CA 10 MG TABLET (FP) PO SCH (22:14)
[2022-03-23] MEDS: THIAMINE HCL 100 MG TABLET (FP) PO SCH (22:14)
[2022-03-23] MEDS: MELATONIN 5 MG TABLETS PO SCH (22:14)
[2022-03-23] MEDS: METHOCARBAMOL 500 MG TABLET PO PRN (22:14)
[2022-03-23] MEDS: TETRAHYDROZOLINE HCL EYE DROPS OU PRN (22:17)
[2022-03-23] MEDS: IBUPROFEN 400 MG TABLET (FP) PO PRN (22:17)
[2022-03-24] MEDS ORDERED: chlordiazePOXIDE HCL 10 MG CAPSULE PO PRN
[2022-03-24] MEDS ORDERED: LORazepam 0.5 MG TABLET PO PRN
[2022-03-24] MEDS ORDERED: chlordiazePOXIDE HCL 10 MG CAPSULE PO SCH (05:00)
[2022-03-24] MEDS: LACTULOSE 20 GM/30 ML UDC (FOR ORAL USE ONLY) PO SCH ×3 (05:29→22:05)
[2022-03-24] MEDS: LORazepam 0.5 MG TABLET PO SCH ×4 (05:30→22:05)
[2022-03-24] MEDS: TETRAHYDROZOLINE HCL EYE DROPS OU PRN ×3 (05:49→22:38)
[2022-03-24] MEDS: IBUPROFEN 400 MG TABLET (FP) PO PRN (06:00)
[2022-03-24] MEDS: METHOCARBAMOL 500 MG TABLET PO PRN (06:00)
[2022-03-24] MEDS: metFORMIN HCL 500 MG TABLET (FP) PO SCH ×2 (06:37→17:32)
[2022-03-24] MEDS: FLUTICASONE PROP 0.05% 16 GM NASAL SPRAY NS SCH (10:06)
[2022-03-24] MEDS: NICOTINE 14 MG/24 HOURS TOPICAL PATCH TD SCH (10:07)
[2022-03-24] MEDS: LIDOCAINE 5% TOPICAL PATCH TP SCH (10:07)
[2022-03-24] MEDS: FLUoxetine HCL 20 MG CAPSULE PO SCH (10:07)
[2022-03-24] MEDS: PRENATAL VITAMINS W/ FOLIC ACID TABLET (FP) PO SCH (10:08)
[2022-03-24] MEDS: PANTOPRAZOLE 40 MG TABLET PO SCH (10:08)
[2022-03-24] MEDS: NEOMYCIN/POLYMYXIN/BACITRACIN (TRIPLE ANTIBIOTIC) 28 GM OINTMENT TP SCH ×2 (10:08→22:06)
[2022-03-24] MEDS: METOPROLOL TARTRATE 25 MG TABLET (FP) PO SCH (10:08)
[2022-03-24] MEDS: ARIPiprazole 5 MG TABLET PO SCH (10:08)
[2022-03-24] MEDS: THIAMINE HCL 100 MG TABLET (FP) PO SCH (22:05)
[2022-03-24] MEDS: ATORVASTATIN CA 10 MG TABLET (FP) PO SCH (22:05)
[2022-03-24] MEDS: LIDOCAINE PATCH REMOVAL MC SCH (22:06)
[2022-03-24] MEDS: MELATONIN 5 MG TABLETS PO SCH (22:06)
[2022-03-25] MEDS ORDERED: LORazepam 0.5 MG TABLET PO ONE (05:00)
[2022-03-25] MEDS ORDERED: chlordiazePOXIDE HCL 10 MG CAPSULE PO SCH (05:00)
[2022-03-25] MEDS: LACTULOSE 20 GM/30 ML UDC (FOR ORAL USE ONLY) PO SCH (05:22)
[2022-03-25] MEDS: metFORMIN HCL 500 MG TABLET (FP) PO SCH (06:51)
[2022-03-25 09:31] VITALS: BP 122/77; PULSE 64; RESP 16; TEMP 97.3
[2022-03-25] MEDS: METOPROLOL TARTRATE 25 MG TABLET (FP) PO SCH (10:17)
[2022-03-25] MEDS: PANTOPRAZOLE 40 MG TABLET PO SCH (10:17)
[2022-03-25] MEDS: ARIPiprazole 5 MG TABLET PO SCH (10:17)
[2022-03-25] MEDS: PRENATAL VITAMINS W/ FOLIC ACID TABLET (FP) PO SCH (10:18)
[2022-03-25] MEDS: NEOMYCIN/POLYMYXIN/BACITRACIN (TRIPLE ANTIBIOTIC) 28 GM OINTMENT TP SCH (10:18)
[2022-03-25] MEDS: LIDOCAINE 5% TOPICAL PATCH TP SCH (10:18)
[2022-03-25] MEDS: FLUoxetine HCL 20 MG CAPSULE PO SCH (10:18)
[2022-03-25] MEDS: NICOTINE 14 MG/24 HOURS TOPICAL PATCH TD SCH (10:18)
[2022-03-25] MEDS: TETRAHYDROZOLINE HCL EYE DROPS OU PRN (10:20)
[2022-03-25] MEDS: FLUTICASONE PROP 0.05% 16 GM NASAL SPRAY NS SCH (10:21)
[2022-03-26] MEDS ORDERED: chlordiazePOXIDE HCL 10 MG CAPSULE PO ONE (05:00)
== END 2022-03-25 12:53 | disposition other institution (70) | DRG 775 ==
LOC: YASAS 10:32 → Y3N 12:59
PROVIDERS: ADMIT Allergy & Immunology; ATTEND Surgery
PROC: HZ2ZZZZ Detoxification Services for Substance Abuse Treatment (ICD-10-PCS; principal; 2022-03-21)
DX: F10.230 Alcohol dependence with withdrawal, uncomplicated (principal); F17.210 Nicotine dependence, cigarettes, uncomplicated; F31.81 Bipolar II disorder; F19.24 Other psychoactive substance dependence with psychoactive substance-induced mood disorder; F41.1 Generalized anxiety disorder; F42.9 Obsessive-compulsive disorder, unspecified; E72.20 Disorder of urea cycle metabolism, unspecified; E78.00 Pure hypercholesterolemia, unspecified; I10 Essential (primary) hypertension; I83.93 Asymptomatic varicose veins of bilateral lower extremities; J45.909 Unspecified asthma, uncomplicated; Z88.7 Allergy status to serum and vaccine; Z91.040 Latex allergy status
CPT/HCPCS: 36415; 71046-TC-FY; 80053; 82140; 82962; 85027; 86780; 87811; C9803-CS; U0003; U0005

== ENCOUNTER 2023-01-12 14:14 | Inpatient (IN) | payer OTHER ==
[2023-01-12 16:53] VITALS: BMI 24.2
[2023-01-12] MEDS ORDERED: chlordiazePOXIDE HCL 25 MG CAPSULE PO PRN (18:27)
[2023-01-12] MEDS ORDERED: MAG HYDROX/AL HYDROX/SIMETH 30 ML UNIT-DOSE CUP PO PRN (18:35)
[2023-01-12] MEDS ORDERED: DICYCLOMINE HCL 10 MG CAPSULE PO PRN (18:35)
[2023-01-12] MEDS ORDERED: BENZONATATE 200 MG CAPSULE PO PRN (18:35)
[2023-01-12] MEDS ORDERED: POLYETHYLENE GLYCOL (HEALTHYLAX) 3350 17 GM PACKET PO PRN (18:35)
[2023-01-12] MEDS ORDERED: BENZOCAINE/MENTHOL (CHLORASEPTIC ) LOZENGE MM PRN (18:35)
[2023-01-12] MEDS ORDERED: MAGNESIUM HYDROX 2400MG/30ML ORAL SUSPENSION 30 ML CUP PO PRN (18:35)
[2023-01-12] MEDS ORDERED: P-EPHED 60MG/TRIPROLIDI 2.5MG TABLET PO PRN (18:35)
[2023-01-12] MEDS ORDERED: ONDANSETRON *ODT* 4 MG TABLET SL PRN (18:35)
[2023-01-12] MEDS ORDERED: guaiFENesin 600 MG TABLET.ER (FP) PO PRN (18:35)
[2023-01-12] MEDS ORDERED: METHOCARBAMOL 500 MG TABLET PO PRN (18:35)
[2023-01-12] MEDS ORDERED: hydrOXYzine PAMOATE 25 MG CAPSULE (FP) PO PRN (18:35)
[2023-01-12] MEDS ORDERED: NICOTINE POLACRILEX 2 MG GUM BUC PRN (18:35)
[2023-01-12] MEDS ORDERED: ACETAMINOPHEN 325 MG TABLET (FP) PO PRN (18:35)
[2023-01-12] MEDS ORDERED: BISMUTH SUBSALICYLATE 524 MG/30 ML PO PRN (18:35)
[2023-01-12] MEDS ORDERED: LOPERAMIDE HCL 2 MG CAPSULE PO PRN (18:35)
[2023-01-12] MEDS ORDERED: IBUPROFEN 400 MG TABLET (FP) PO PRN (18:35)
[2023-01-12] MEDS ORDERED: chlordiazePOXIDE HCL 25 MG CAPSULE PO ONE (18:45)
[2023-01-12] MEDS ORDERED: ALBUTEROL SO4 HFA INHALER IH PRN (20:14)
[2023-01-12] MEDS ORDERED: chlordiazePOXIDE HCL 25 MG CAPSULE ONE (22:37)
[2023-01-12] MEDS ORDERED: MELATONIN 5 MG TABLETS ONE (22:38)
[2023-01-12] MEDS: MELATONIN 5 MG TABLETS PO SCH (22:45)
[2023-01-13] MEDS: chlordiazePOXIDE HCL 25 MG CAPSULE PO SCH ×5 (05:32→22:15)
[2023-01-13] MEDS: THIAMINE HCL 100 MG TABLET (FP) PO SCH ×2 (05:33→22:15)
[2023-01-13] MEDS ORDERED: chlordiazePOXIDE HCL 25 MG CAPSULE ONE ×2 (05:56→11:04)
[2023-01-13] MEDS ORDERED: NICOTINE POLACRILEX 2 MG GUM ONE (06:14)
[2023-01-13] MEDS ORDERED: cloNIDine HCL 0.1 MG TABLET ONE (06:29)
[2023-01-13 09:45] LABS: POTASSIUM 3.8 mmol/L (3.5-5.1)
[2023-01-13 09:53] LABS: HEMATOCRIT 34.1 % (32.4-45.2); HEMOGLOBIN 11.4 GM/dL (10.7-15.3); MCH 32.6 pg (25.7-33.7); MCHC 33.5 g/dl (32.0-36.0); MEAN CELL VOLUME 97.4 fl (80-96); MEAN PLT VOLUME 9.8 fl (7.5-11.1); PLATELET COUNT 135 10^3/uL (134-434); RDW 13.7 % (11.6-15.6); WHITE BLOOD COUNT 3.9 K/mm3 (4.0-10.0)
[2023-01-13 10:33] LABS: BILIRUBIN,TOTAL 0.5 mg/dL (0.2-1); TOT PROT 6.2 g/dl (6.4-8.2)
[2023-01-13 10:37] LABS: CALCIUM 8.6 mg/dL (8.5-10.1)
[2023-01-13 10:38] LABS: BLOOD UREA NITROGEN 9.6 mg/dL (7-18)
[2023-01-13 10:40] LABS: CREATININE 0.8 mg/dL (0.55-1.3)
[2023-01-13] MEDS ORDERED: PRENATAL VITAMINS W/ FOLIC ACID TABLET (FP) PO ONE (11:04)
[2023-01-13] MEDS: PRENATAL VITAMINS W/ FOLIC ACID TABLET (FP) PO SCH (11:05)
[2023-01-13] MEDS ORDERED: LORATADINE 10 MG TABLET PO PRN (16:47)
[2023-01-13] MEDS: NICOTINE 14 MG/24 HOURS TOPICAL PATCH TD SCH (17:10)
[2023-01-13] MEDS: FLUTICASONE PROP 0.05% 16 GM NASAL SPRAY NS SCH (19:24)
[2023-01-13] MEDS: MELATONIN 5 MG TABLETS PO SCH (22:15)
[2023-01-14] MEDS: chlordiazePOXIDE HCL 25 MG CAPSULE PO SCH ×4 (05:41→22:20)
[2023-01-14] MEDS: FLUTICASONE PROP 0.05% 16 GM NASAL SPRAY NS SCH (10:04)
[2023-01-14] MEDS: METOPROLOL TARTRATE 25 MG TABLET (FP) PO SCH (10:05)
[2023-01-14] MEDS: PRENATAL VITAMINS W/ FOLIC ACID TABLET (FP) PO SCH (10:05)
[2023-01-14] MEDS: NICOTINE 14 MG/24 HOURS TOPICAL PATCH TD SCH (10:05)
[2023-01-14] MEDS: PANTOPRAZOLE 40 MG TABLET PO SCH (10:05)
[2023-01-14] MEDS ORDERED: ARIPiprazole 15 MG TABLET PO SCH (11:45)
[2023-01-14] MEDS ORDERED: ARIPiprazole 5 MG TABLET PO SCH (11:51)
[2023-01-14] MEDS: FLUoxetine HCL 20 MG CAPSULE PO SCH (12:33)
[2023-01-14] MEDS: ARIPiprazole 5 MG TABLET PO SCH (12:37)
[2023-01-14] MEDS: IBUPROFEN 600 MG TABLET (FP) PO PRN (19:16)
[2023-01-14] MEDS: MELATONIN 5 MG TABLETS PO SCH (22:19)
[2023-01-14] MEDS: QUEtiapine FUMARATE 50 MG TABLET PO SCH (22:20)
[2023-01-14] MEDS: THIAMINE HCL 100 MG TABLET (FP) PO SCH (22:20)
[2023-01-15] MEDS ORDERED: chlordiazePOXIDE HCL 10 MG CAPSULE PO PRN
[2023-01-15] MEDS: chlordiazePOXIDE HCL 10 MG CAPSULE PO SCH ×4 (05:21→22:10)
[2023-01-15] MEDS: IBUPROFEN 600 MG TABLET (FP) PO PRN (07:44)
[2023-01-15] MEDS: PRENATAL VITAMINS W/ FOLIC ACID TABLET (FP) PO SCH (10:04)
[2023-01-15] MEDS: PANTOPRAZOLE 40 MG TABLET PO SCH (10:05)
[2023-01-15] MEDS: ARIPiprazole 5 MG TABLET PO SCH (10:05)
[2023-01-15] MEDS: FLUoxetine HCL 20 MG CAPSULE PO SCH (10:05)
[2023-01-15] MEDS: METOPROLOL TARTRATE 25 MG TABLET (FP) PO SCH (10:05)
[2023-01-15] MEDS: NICOTINE 14 MG/24 HOURS TOPICAL PATCH TD SCH (10:06)
[2023-01-15] MEDS: FLUTICASONE PROP 0.05% 16 GM NASAL SPRAY NS SCH (10:06)
[2023-01-15] MEDS: MELATONIN 5 MG TABLETS PO SCH (22:09)
[2023-01-15] MEDS: THIAMINE HCL 100 MG TABLET (FP) PO SCH (22:09)
[2023-01-15] MEDS: QUEtiapine FUMARATE 50 MG TABLET PO SCH (22:09)
[2023-01-16] MEDS: chlordiazePOXIDE HCL 10 MG CAPSULE PO SCH ×2 (05:28→17:07)
[2023-01-16] MEDS: ARIPiprazole 5 MG TABLET PO SCH (10:12)
[2023-01-16] MEDS: PANTOPRAZOLE 40 MG TABLET PO SCH (10:13)
[2023-01-16] MEDS: FLUoxetine HCL 20 MG CAPSULE PO SCH (10:13)
[2023-01-16] MEDS: METOPROLOL TARTRATE 25 MG TABLET (FP) PO SCH (10:13)
[2023-01-16] MEDS: FLUTICASONE PROP 0.05% 16 GM NASAL SPRAY NS SCH (10:13)
[2023-01-16] MEDS: PRENATAL VITAMINS W/ FOLIC ACID TABLET (FP) PO SCH (10:14)
[2023-01-16] MEDS: IBUPROFEN 600 MG TABLET (FP) PO PRN (10:17)
[2023-01-16] MEDS: NICOTINE 14 MG/24 HOURS TOPICAL PATCH TD SCH (10:18)
[2023-01-16] MEDS: MELATONIN 5 MG TABLETS PO SCH (22:07)
[2023-01-16] MEDS: THIAMINE HCL 100 MG TABLET (FP) PO SCH (22:07)
[2023-01-16] MEDS: QUEtiapine FUMARATE 50 MG TABLET PO SCH (22:07)
[2023-01-17] MEDS ORDERED: chlordiazePOXIDE HCL 10 MG CAPSULE PO ONE (05:00)
[2023-01-17] MEDS: METOPROLOL TARTRATE 25 MG TABLET (FP) PO SCH (09:21)
[2023-01-17] MEDS: FLUTICASONE PROP 0.05% 16 GM NASAL SPRAY NS SCH (09:21)
[2023-01-17] MEDS: ARIPiprazole 5 MG TABLET PO SCH (09:21)
[2023-01-17] MEDS: PANTOPRAZOLE 40 MG TABLET PO SCH (09:22)
[2023-01-17] MEDS: PRENATAL VITAMINS W/ FOLIC ACID TABLET (FP) PO SCH (09:22)
[2023-01-17] MEDS: NICOTINE 14 MG/24 HOURS TOPICAL PATCH TD SCH (09:22)
[2023-01-17] MEDS: FLUoxetine HCL 20 MG CAPSULE PO SCH (09:22)
[2023-01-17 12:57] VITALS: BP 107/60; PULSE 73; RESP 18; TEMP 98.3
== END 2023-01-17 13:02 | disposition home or self-care (01) | DRG 774 ==
LOC: YASAS 14:14 → Y3N 01-13 11:27
PROVIDERS: ADMIT Allergy & Immunology; ATTEND Surgery
PROC: HZ2ZZZZ Detoxification Services for Substance Abuse Treatment (ICD-10-PCS; principal; 2023-01-13)
DX: F10.230 Alcohol dependence with withdrawal, uncomplicated (principal); F14.20 Cocaine dependence, uncomplicated; F13.20 Sedative, hypnotic or anxiolytic dependence, uncomplicated; F31.9 Bipolar disorder, unspecified; F41.9 Anxiety disorder, unspecified; I10 Essential (primary) hypertension; K21.9 Gastro-esophageal reflux disease without esophagitis; Z87.891 Personal history of nicotine dependence; Z88.7 Allergy status to serum and vaccine; Z91.040 Latex allergy status
CPT/HCPCS: 36415; 80053; 81025; 82962; 85027; 86780; 87635